=== PATIENT | female | born 1970 | race Caucasian/White ===

== ENCOUNTER 2020-09-09 09:38 | Emergency (ER) | payer OTHER ==
[2020-09-09 10:38] LABS: HEMOGLOBIN 14.8 gm/dl (12.3-15.3); RED BLOOD COUNT 4.66 M/UL (4.00-5.10); WHITE BLOOD COUNT 19.6 K/UL (4.5-11.0)
[2020-09-09 11:08] LABS: BUN/CREATININE RATIO 11 (0-10)
[2020-09-09] MEDS ORDERED: CIPRO500 MG PO (12:27)
[2020-09-09] MEDS ORDERED: FLAGYL500 MG PO (12:27)
[2020-09-09] MEDS ORDERED: PHENERGAN 25 MG25 M1 PO (12:27)
== END 2020-09-09 09:44 | disposition home or self-care (01) ==
LOC: ER1 09:38
PROVIDERS: Physician Assistant
DX: K57.32 Diverticulitis of large intestine without perforation or abscess without bleeding (principal); J45.909 Unspecified asthma, uncomplicated; E03.9 Hypothyroidism, unspecified; F17.200 Nicotine dependence, unspecified, uncomplicated; Z90.49 Acquired absence of other specified parts of digestive tract; Z90.710 Acquired absence of both cervix and uterus; Z88.0 Allergy status to penicillin; Z88.8 Allergy status to other drugs, medicaments and biological substances; Z79.82 Long term (current) use of aspirin; Z79.899 Other long term (current) drug therapy
CPT/HCPCS: 80053; 81001; 82272; 83690; 85025; 96374; 96375; 99284; J1885; J2270; J2550; J7030; Q9965

== ENCOUNTER 2020-09-22 08:59 | Emergency (ER) | payer OTHER ==
[~2020-09-22 08:59] MED LIST: CIPRO500 MG PO; FLAGYL500 MG PO; PHENERGAN 25 MG25 M1 PO
== END 2020-09-22 12:04 | disposition home or self-care (01) ==
LOC: ER1 08:59
DX: M79.651 Pain in right thigh (principal); Z79.01 Long term (current) use of anticoagulants; Z79.899 Other long term (current) drug therapy; Z88.0 Allergy status to penicillin
CPT/HCPCS: 93971; 99283

== ENCOUNTER → 2021-02-10 | Outpatient (CLI) | payer OTHER | LOC: KOH-I 13:23 | DX: M25.571 Pain in right ankle and joints of right foot (principal) | CPT/HCPCS: 73610 ==

== ENCOUNTER 2021-03-19 10:09 | Observation (INO) | payer OTHER ==
[~2021-03-19] VITALS: Ht 154.9 cm; Wt 90.7 kg
[~2021-03-19 10:09] MED LIST changes: +BENTYL 20MG TAB20 MG PO; +ZOFRAN 4 MG TAB4 MG PO
[2021-03-19 13:51] LABS: HEMOGLOBIN 13.9 gm/dl (12.3-15.3); RED BLOOD COUNT 4.39 M/UL (4.00-5.10)
[2021-03-19 14:12] LABS: BUN/CREATININE RATIO 8 (0-10)
[2021-03-19 14:14] LABS: WHITE BLOOD COUNT 12.4 K/UL (4.5-11.0)
[2021-03-19] MEDS ORDERED: ASPIRIN EC81 MG PO (16:25)
[2021-03-19] MEDS ORDERED: ALPRAZOLAM1 MG PO (16:25)
[2021-03-19] MEDS ORDERED: SYNTHROID125 MCG PO (16:25)
[2021-03-19] MEDS ORDERED: FISH OIL 1,0001 EACH PO (16:26)
[2021-03-19] MEDS ORDERED: CYCLOBENZAPRINE10 MG PO (16:26)
[2021-03-19] MEDS ORDERED: VITAMIN C250 MG PO (16:27)
[2021-03-19] MEDS ORDERED: VITAMIN D325 MC6 PO (16:27)
[2021-03-20 06:50] LABS: HEMOGLOBIN 13.5 gm/dl (12.3-15.3); RED BLOOD COUNT 4.35 M/UL (4.00-5.10); WHITE BLOOD COUNT 9.7 K/UL (4.5-11.0)
[2021-03-20] MEDS ORDERED: BENTYL 10MG CAP10 MG PO (09:35)
[2021-03-20] MEDS ORDERED: FLORANEX GRANU1 EACH PO (09:35)
[2021-03-20] MEDS ORDERED: COLACE100 MG PO (09:35)
== END 2021-03-20 11:40 | disposition home or self-care (01) ==
LOC: ER1 10:09 → MED SURG 4 14:22 → CDU 14:22 → MED SURG 4 19:37
PROVIDERS: Physician Assistant; ADMIT Internal Medicine Infectious Disease
DX: R19.7 Diarrhea, unspecified (principal); R11.2 Nausea with vomiting, unspecified; R10.9 Unspecified abdominal pain; D72.829 Elevated white blood cell count, unspecified; F41.9 Anxiety disorder, unspecified; F17.210 Nicotine dependence, cigarettes, uncomplicated; E03.9 Hypothyroidism, unspecified; Z20.822 Contact with and (suspected) exposure to COVID-19; Z90.49 Acquired absence of other specified parts of digestive tract; Z88.0 Allergy status to penicillin; Z88.4 Allergy status to anesthetic agent; Z90.710 Acquired absence of both cervix and uterus; Z98.890 Other specified postprocedural states
CPT/HCPCS: 36415; 80053; 81001; 83605; 84443; 85025; 87040; 99284; G0378; J2550; J3480; U0002